=== PATIENT | female | born 1990 | race Caucasian/White ===

== ENCOUNTER 2018-11-17 06:22 | Emergency (ER) | payer MEDICARE, MEDICAID ==
--- NOTE | 2018-11-17 06:23 | ER Document Report ---
ED General - General Stated Complaint: POSSIBLE SEIZURE Time Seen by Provider: 11/17/18 06:23 Primary Care Provider: FCO FRENCH FNP [NO LOCAL MD] - Follow up as needed Notes: 28-year-old female with history of bipolar presents after 2 seizures. She also has a seizure disorder. Per EMS she was postictal. On ED arrival she standing in the hallway asking to leave. - Related Data Allergies/Adverse Reactions: No Known Allergies Allergy (Unverified 01/11/13 20:24) Past Medical History - Social History Smoking Status: Never Smoker Smoking Education Provided: Yes - The patient ED visit today was directly related to their abuse of tobacco. Family History: Reviewed & Not Pertinent Neurological Medical History: Reports: Hx Seizures Psychiatric Medical History: Reports: Hx Depression - Immunizations Hx Diphtheria, Pertussis, Tetanus Vaccination: No Review of Systems - Review of Systems Notes: REVIEW OF SYSTEMS GEN: Denies fever, chills, weight loss ENT: Denies sore throat, nasal discharge, ear pain EYES: Denies blurry vision, eye pain, discharge CV: Denies chest pain, palpitations, edema RESP: Denies cough, shortness of breath, wheezing GI: Denies abdominal pain, nausea, vomiting, diarrhea MSK: Denies joint pain/swelling, edema, SKIN: Denies rash, skin lesions LYMPH: Denies swollen glands/lymph nodes NEURO: Seizures. Denies headache, focal weakness or numbness, dizziness PSYCH: Denies depression, suicidal or homicidal ideation PHYSICAL EXAMINATION General: No acute distress, well-nourished Head: Atraumatic, normocephalic ENT: Mouth normal, oropharynx moist, no exudates or tonsillar enlargement Eyes: Conjunctiva normal, pupils equal, lids normal Neck: No JVD, supple, no guarding CVS: Normal rate, regular rhythm, no murmurs Resp: No resp distress, equal and normal breath sounds bilaterally GI: Nondistended, soft, no tenderness to palpation, no rebound or guarding Ext: No deformities, no edema, normal range of motion in upper and lower ext Back: No CVA or midline TTP Skin: No rash, warm Lymphatic: No lymphadeopathy noted Neuro: Awake, alert. Face symmetric. GCS 15. Physical Exam - Vital signs Vitals: Temp Pulse Resp BP Pulse Ox 97.2 F 106 H 18 125/80 95 11/17/18 06:25 11/17/18 06:25 11/17/18 06:25 11/17/18 06:25 11/17/18 06:25 Course - Re-evaluation Re-evalutation: 11/17/18 12:35 Status post seizure history of same. Also bipolar. Could be medinduce her noncompliance. She has no trauma. She is awake and alert on ED arrival asking to leave. Had AMA discussion. She was placed in a room awaiting a ride and to sign forms when she had a generalized tonic clonic seizure. She was given IM Ativan was terminated the seizure. IV was started she was worked up to the monitor. I was called again to evaluate the patient and this time she was having a nonepileptic seizure which I terminated with a loud noise. She stood up, cursed me, and was able to ambulate well. At this time she was discharged to follow-up with her primary care. I have discussed with the patient there likely diagnosis, aftercare plan, follow-up plans and my usual and customary return precautions. They verbalized understanding of this. - Vital Signs Vital signs: Temp Pulse Resp BP Pulse Ox 97.2 F 106 H 20 117/82 98 11/17/18 06:25 11/17/18 06:25 11/17/18 07:00 11/17/18 06:46 11/17/18 07:00 Critical Care Note - Critical Care Note Total time excluding time spent on procedures (mins): 32 Comments: The above patient is critically ill. Not including procedures, but including direct re-evaluations, speaking with patient and/or consultants, interpreting results, and documenting, I spent the total amount of minute listed listed above on critical care time Discharge - Discharge Clinical Impression: Breakthrough seizure Clinical Impression: (Ruled Out): Breakthrough bleeding Condition: Good Disposition: HOME, SELF-CARE Instructions: New Seizure ([facility]) Additional Instructions: Elected to leave AGAINST MEDICAL ADVICE despite understanding the risks of getting sick or . He return to the emergency room at any point Referrals: FCO FRENCH FNP [NO LOCAL MD] - Follow up as needed
[2018-11-17] MEDS ORDERED: MIDAZOLAM 2 MG/2 ML INJ ONE (06:44)
[2018-11-17] MEDS ORDERED: LORAZEPAM INJ 2 MG/1 ML VIAL ONE (07:03)
[2018-11-17 07:27] VITALS: BP 117/82
== END 2018-11-17 07:34 | disposition home or self-care (01) ==
LOC: ER 06:22
DX: G40.909 Epilepsy, unspecified, not intractable, without status epilepticus (principal); F31.9 Bipolar disorder, unspecified; Z72.0 Tobacco use
CPT/HCPCS: 99285; 96374; 82962; J2250

== ENCOUNTER → 2018-11-18 | Outpatient (CLI) | payer MEDICARE, MEDICAID ==
--- NOTE | 2018-11-18 13:43 | RADIOLOGY REPORT (SQ) ---
EXAM DESCRIPTION: ANKLE RIGHT COMPLETE COMPLETED DATE/TIME: 11/18/2018 1:23 pm REASON FOR STUDY: RIGHT FOOT PAIN M79.671 PAIN IN RIGHT FOOT COMPARISON: None. NUMBER OF VIEWS: Three views. TECHNIQUE: AP, lateral, and oblique radiographic images acquired of the right ankle. LIMITATIONS: None. FINDINGS: MINERALIZATION: Normal. BONES: No acute fracture or dislocation. No worrisome bone lesions. JOINTS: No effusions. SOFT TISSUES: No soft tissue swelling. No foreign body. OTHER: No other significant finding. IMPRESSION: NEGATIVE STUDY OF THE RIGHT ANKLE. NO RADIOGRAPHIC EVIDENCE OF ACUTE INJURY. TECHNICAL DOCUMENTATION: JOB ID: [id number] [employer]- All Rights Reserved Reading location - IP/workstation name: [email or web address]
== END ==
LOC: OD 13:10
PROVIDERS: ATTEND Nurse Practitioner Acute Care
DX: M79.671 Pain in right foot (principal)